=== PATIENT | female | born 1970 | race Caucasian/White ===

== ENCOUNTER → 2021-07-10 08:11 | Outpatient (CLI) | payer OTHER, SELFPAY ==
--- NOTE | ~2021-07-10 | MR_ITS ---
EXAMINATION: MR knee RT wo con DATE: 07/10/2021 08:44 INDICATION: Chronic right knee pain TECHNIQUE: Magnetic resonance imaging (MRI) of the right knee was performed without intravenous contr ast. Sequences included coronal PD-weighted FSE, coronal PD-weighted FS FSE, sagittal T2-weighted FS E, sagittal PD-weighted FS FSE and axial PD weighted fat saturated FSE. COMPARISON: None. FINDINGS: Medial compartment: Medial meniscus is normal. Articular cartilage is normal. Lateral compartment: Lateral meniscus is normal. Articular cartilage is normal. Patellofemoral compartment: Full/near full-thickness chondral ulceration with subtle cortical irregularity and mild subarticular cystlike changes along portions of the lateral patellar facet and apical ridge as well as the juxtapo sed superior aspect of the lateral trochlea. Less severe partial thickness cartilage loss but with de ep fissuring and additional subarticular cystlike changes at the medial facet and shallow chondral ul ceration at the inferior aspect of the medial and lateral trochlea as well as intervening trochlear g roove. Ligaments and tendons: Anterior and posterior cruciate ligaments are normal. The medial collateral ligament and fibular ermias ateral ligament complex are normal. The extensor mechanism is normal. The visualized medial and later al hamstring tendons as well as the iliotibial band are normal. Fluid: Small right knee joint effusion. No loose osteochondral bodies identified. Osseous/other: Bone alignment is normal. No fracture or abnormal marrow replacing process. IMPRESSION: 1. Severe osteoarthritis with extensive high-grade chondromalacia in the patellofemoral compartment. Reviewed, dictated and finalized at location A. IMPRESSION: 1. Severe osteoarthritis with extensive high-grade chondromalacia in the patell ofemoral compartment.
== END ==
PROVIDERS: PCP Physician Assistant; Visit Provider Orthopaedic Surgery
DX: M25.561 Pain in right knee (principal); G89.29 Other chronic pain; M17.11 Unilateral primary osteoarthritis, right knee; M94.261 Chondromalacia, right knee
CPT/HCPCS: 73721